=== PATIENT | male | born 1990 | race Caucasian/White ===

== ENCOUNTER 2016-10-13 19:49 | Inpatient (IN) | payer BC, OTHER ==
[~2016-10-13] VITALS: Ht 180.3 cm; Wt 66.2 kg
[2016-10-13 20:20] VITALS: BP 102/61
--- NOTE | 2016-10-13 20:20 | NUR ---
INTAKE ASSESSMENT VS BP- 102/61 T-97.8 P-55 R-17 PA-0/10 SpO2 AT 99% IN RA . SPEECH CLEAR, ABLE TO ANSWER QUESTION PROPERLY. ALERT AND ORIENTED X 4. AMBULATORY AND GAIT IS STEADY. DENIES ANY PAIN . NO SEIZURE HISTORY. NO KNOWN ALLERGIES TO FOOD OR MEDICATIONS. PATIENT REPORTS USING XANAX, ALCOHOL AND MARIJUANA. DENIES ANY PAIN . WILL CONTINUE ADMISSION PROCESS ON 3RD FLOOR
--- NOTE | 2016-10-13 20:36 | NUR ---
ADMISSION NOTE PATIENT IS A 26 YEAR OLD MALE WHO PRESENTS TO [facility] FOR SUPERVISED WITHDRAWAL FROM ETOH/BENZO DEPENDENCE. HEIGHT IS 511 AND WEIGHT IS 146 LBS. BODY CHECK DONE, SKIN INTACT. NO SKIN BREAKDOWN. LUNGS CLEAR AND ABDOMEN SOFT AND NON-DISTENDED. BOWEL SOUNDS ACTIVE ON ALL 4 QUADRANT. LAST BOWEL MOVEMENT TODAY. PATIENT REQUESTED TO BE FULL CODE AND ON REGULAR DIET. PATIENT HAS NO PCP. PATIENT REPORT PMH OF ADHD, ANXIETY, PANIC ATTACK, BIPOLAR TYPE II, DEPRESSION AND SUICIDE ATTEMPT ON NOV 2015. DENIES SI/HI . 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 SUBSTANCE HISTORY: 1.ALCOHOL-STARTED DRINKING AT AGE 16. PATIENT DRINKS 1 PINT OF VODKA DAILY FOR A WEEK. LAS DRINK WAS 1 SHOT OF VODKA ON 10/13/16 2.XANAX (PRESCRIBED NEEDED)-STARTED USING AT AGE 21. HE TAKES BAR 1 BAR NEEDED SINCE AGE 21 . LAST USE WAS 1 BAR ON 10/12/16 3.MARIJUANA -STARTED USING AT AGE 17. HE SMOKES 1 GRAM DAILY 6 YEARS . LAST USE WAS TH GRAM ON 10/13/16 TREATMENT HISTORY: [facility]-FEB 2016-30 DAYS [facility] MAR 2016-30 DAYS PATIENT BROUGHT HOME MEDS.-RECONCILED. PATIENT REPORTS ANXIETY BUT HES NOT WITHDRAWING YET. UA WAS PROVIDED. HIS LONGEST PERIOD OF SOBRIETY WAS 90 DAYS ON [facility] AND [facility] FROM FEB-APRIL 2016. PATIENT SMOKES PACK A DAY. PATIENT WAS ORIENTED TO SURROUNDING AND HOW TO USE CALL LIGHT. PATIENT WAS PLACED ON FALL/SEIZURE PRECAUTION. SAFETY MEASURES IN PLACE. CALL LIGHT IN REACH. WILL CONTINUE TO MONITOR. Addendum: 10/14/16 at 1509 by JULISSA LAINEZ RN PATIENT REPORTS USING 10 MG HYDROCODONE ON 10/12/16. HE STATES IT WAS A ONE TIME EXPERIENCE.
[2016-10-13] MEDS ORDERED: METH36TA13 PO (22:21)
[2016-10-13] MEDS ORDERED: FLUO20TA28 PO (22:21)
[2016-10-13] MEDS ORDERED: OMEG1TAB4 PO (22:21)
[2016-10-13] MEDS ORDERED: OLAN10TA23 PO (22:21)
[2016-10-13] MEDS ORDERED: BUSP5TAB3 PO (22:21)
[2016-10-13] MEDS ORDERED: CLON0.1T PO (22:21)
[2016-10-13] MEDS ORDERED: MAGNESIUM HYDROXIDE 30 ML LIQUID UDC PO PRN (22:45)
[2016-10-13] MEDS ORDERED: THIAMINE HCL 200 MG/2 ML VIAL IM ONE (22:45)
[2016-10-13] MEDS ORDERED: LOPERAMIDE HCL 2 MG CAPSULE PO PRN ×2 (22:45)
[2016-10-13] MEDS ORDERED: MIRALAX 17 GM POWD.PACK PO PRN (22:45)
[2016-10-13] MEDS ORDERED: LORAZEPAM 1 MG TABLET PO PRN ×2 (22:45)
[2016-10-13] MEDS ORDERED: MAG HYDROX/AL HYDROX/SIMETH 30 ML LIQUID UDC PO PRN (22:45)
[2016-10-13] MEDS ORDERED: ONDANSETRON 4 MG/2 ML VIAL IM PRN (22:45)
[2016-10-13] MEDS ORDERED: ONDANSETRON ODT 4 MG TAB.RAPDIS SL PRN (22:45)
[2016-10-13] MEDS ORDERED: ACETAMINOPHEN 325 MG TABLET PO PRN (22:45)
[2016-10-13] MEDS ORDERED: IBUPROFEN 400 MG TABLET PO PRN (22:45)
[2016-10-13] MEDS ORDERED: LORAZEPAM 2 MG/1 ML VIAL IM PRN (22:45)
--- NOTE | 2016-10-13 22:45 | NUR ---
THIAMINE INJECTION REFUSED PATIENT REFUSED THIAMINE INJECTION. EXPLAINED RISKS/BENEFITS BUT STILL REFUSED . WILL CONTINUE TO MONITOR.
[2016-10-14 00:36] LABS: *AMPHETAMINE, URINE NEGATIVE (NEGATIVE); *BARBITURATE, URINE NEGATIVE (NEGATIVE); *CANNABINOID, URINE POSITIVE (NEGATIVE); *COCCAINE, URINE NEGATIVE (NEGATIVE); *OPIATE, URINE POSITIVE (NEGATIVE); *PHENCYCLIDINE SCREEN,URINE NEGATIVE (NEGATIVE)
[2016-10-14 00:41] LABS: BASOPHILS # (AUTO) 0.1 K/uL (0.0-8.0); BASOPHILS % (AUTO) 0.9 % (0.0-2.0); EOSINOPHILS # (AUTO) 0.3 K/uL (0.0-0.7); EOSINOPHILS % (AUTO) 4.5 % (0.0-7.0); HEMATOCRIT 44.3 % (40-50); HEMOGLOBIN 15.1 G/DL (14.0-18.0); LYMPHOCYTES # (AUTO) 3.2 K/UL (0.8-4.8); MEAN CORPUSCULAR HEMOGLOBIN 30.6 UUG (27.0-31.0); MEAN CORPUSCULAR HGB CONC 34 g/dL (32.0-37.0); MEAN CORPUSCULAR VOLUME 89.9 FL (82.0-92.0); MONOCYTES # (AUTO) 0.3 K/UL (0.1-1.30); MONOCYTES % (AUTO) 5.2 % (0.0-11.0); NEUTROPHILS # (AUTO) 2.7 K/UL (1.8-8.9); NEUTROPHILS % (AUTO) 41.4 % (38.5-71.5); PLATELET COUNT (AUTO) 239 K/UL (150-450); RED BLOOD CELL COUNT(AUTO) 4.92 MIL/UL (4.7-6.1); WHITE BLOOD COUNT (AUTO) 6.6 K/UL (4.0-11.2)
[2016-10-14 00:59] LABS: ALANINE AMINOTRANSFERASE 26 U/L (16-63); ALKALINE PHOSPHATASE 51 U/L (50-136); AMYLASE 35 U/L (25-115); ASPARTATE AMINOTRANSFERASE 18 U/L (15-37); BILIRUBIN,TOTAL 1.6 mg/dL (0.2-1.0); CARBON DIOXIDE 30 mmol/L (21-32); CHLORIDE 102 mmol/L (98-107); CREATININE 0.9 mg/dL (0.6-1.3); GLUCOSE 80 mg/dL (74-106); LIPASE 50 U/L (73-393); MAGNESIUM 1.8 mg/dL (1.8-2.4); POTASSIUM 3.8 mmol/L (3.5-5.1); TOTAL PROTEIN, SERUM 6.8 g/dL (6.4-8.2); UREA NITROGEN, BLOOD 16 mg/dL (7-18)
[2016-10-14 01:00] LABS: ETHANOL < 3 MG/DL (0-0)
[2016-10-14 04:00] VITALS: BP 113/63
--- NOTE | 2016-10-14 07:20 | NUR ---
START OF SHIFT NOTE PATIENT HAD UNEVENTFUL EVENT LAST NIGHT. PATIENT SLEPT 7 HOURS. FLUID INTAKE OF 355 ML. VOIDED X 1. NO BM. PATIENT DID NOT REQUIRE ANY PRN MEDICATION. LAST CIWA 1. PATIENT REFUSED THIAMINE INJECTION. ON FALL/SEIZURE PRECAUTION. SAFETY MEASURES IN PLACE. CALL LIGHT IN REACH. WILL CONTINUE TO MONITOR
[2016-10-14 08:00] VITALS: BP 106/64
--- NOTE | 2016-10-14 08:10 | NUR ---
START OF SHIFT Received patient AOx4. Patient reports he isnt experiencing w/d symptoms yet, but he is feeling anxious. No PRNS given per night nurse. Patient slept 7 hours. CIWA 4 at 0800 this AM. Encouraged patient to increase fluid intake. Encouraged pt to notify RN if S/S of W/D worsen. All safety measures in place. Will monitor.
[2016-10-14] MEDS: MULTIVITAMINS,THERAPEUTIC TABLET PO SCH (08:30)
[2016-10-14] MEDS: FOLIC ACID 1 MG TABLET PO SCH (08:31)
[2016-10-14] MEDS: HYDROXYZINE PAMOATE 25 MG CAPSULE PO PRN (08:31)
[2016-10-14] MEDS: THIAMINE HCL 100 MG TABLET PO SCH (08:31)
--- NOTE | 2016-10-14 08:32 | NUR ---
PRN MEDICATION VISTARIL GIVEN FOR PATIENT C/O GENERALIZED ANXIETY. WILL REASSESS
[2016-10-14] MEDS ORDERED: TUBERCULIN,PURIF.PROT.DERIV. 5 TU/0.1 ML TEST ID ONE (09:00)
--- NOTE | 2016-10-14 09:20 | NUR ---
PRN REASSESSMENT patient reports improvement in anxiety. will monitor
[2016-10-14 12:00] VITALS: BP 112/70
[2016-10-14] MEDS ORDERED: LORAZEPAM 1 MG TABLET PO PRN ×2 (15:00)
[2016-10-14] MEDS: GABAPENTIN 300 MG CAPSULE PO SCH ×2 (15:12→21:03)
[2016-10-14] MEDS ORDERED: OLANZAPINE PO SCH (15:45)
[2016-10-14 16:00] VITALS: BP 120/64
[2016-10-14] MEDS: OLANZAPINE 5 MG TABLET PO SCH (16:25)
[2016-10-14] MEDS: FLUOXETINE HCL 20 MG CAPSULE PO SCH (16:25)
[2016-10-14] MEDS: busPIRone 5 MG TABLET PO SCH (16:27)
[2016-10-14] MEDS ORDERED: LORAZEPAM 1 MG TABLET PO SCH ×2 (17:45→22:00)
--- NOTE | 2016-10-14 18:35 | NUR ---
END OF SHIFT NOTE Patient is to start 5 day Ativan taper tomorrow. Patient given Ativan ordered at 1745 this shift. Patient report anxiety and mild tremors. He reports this is "normal" for him. PRN Vistaril given for anxiety with effectiveness.. Patient attended group and activities and socialized with peers. Vital signs stable. Last CIWA 7. All needs met. All safety measures in place. Will endorse to night nurse.
[2016-10-14 20:00] VITALS: BP 106/68
--- NOTE | 2016-10-14 20:00 | NUR ---
Start of Shift Patient is a 26-year old, male, admitted for Alcohol and Benzo Dependence. Pt with hx of ADHD, Anxiety, Panic Attack, Bipolar Type II, Depression and Suicide Attempt on 11/2015. Pt denies SI/HI at this time. Pt with NKA, is Full Code and on Regular Diet. Pt is scheduled to start on a 5-day Ativan taper on 10/15/2016. Pt is AAOx4, no SOB noted and with mild anxiety observed. Pt verbalized "feeling a little drowsy". Vital signs are stable. Fall, universal, seizure and safety prec in place. Call light within reach. Latest CIWA=5. Will continue to monitor.
[2016-10-15] VITALS: BP 110/62
[2016-10-15 04:00] VITALS: BP 115/63
--- NOTE | 2016-10-15 07:06 | NUR ---
End of Shift Patient is a 26-year old, male, admitted for Alcohol and Benzo Dependence. Pt with hx of ADHD, Anxiety, Panic Attack, Bipolar Type II, Depression and Suicide Attempt on 11/2015. Pt denies SI/HI at this time. Pt with NKA, is Full Code and on Regular Diet. Pt is scheduled to start on a 5-day Ativan taper on 10/15/2016. Pt is AAOx4, no SOB noted and with mild anxiety observed. Vital signs are stable. Fall, universal, seizure and safety prec in place. Call light within reach. Latest CIWA=3, slept for 9 hours. Endorsed to AM shift nurse for continuity of care.
[2016-10-15 08:00] VITALS: BP 116/72
[2016-10-15 08:07] LABS: HEPATITIS B SURFACE AG Negative (Negative)
--- NOTE | 2016-10-15 08:20 | NUR ---
START OF SHIFT: RECEIVED PT A/O X 4. HE STATES HE SLEPT WELL. HE DENIES S/I AND H/I. HE PRESENTS WITH BLUNTED AFFECT AND DEPRESSED MOOD. HE STATES HE FEELS SOME ANXIETY AND RESTLESSNESS. HE REPORTS THE DETOX MEDS ARE EFFECTIVE. CIWA 5 ATIVAN TAPER IN PROGRESS. ENCOURAGED INCREASED FLUIDS AND GROUP ATTENDANCE TODAY. WILL CONTINUE TO MONITOR AND MANAGE S/S OF W/D.
[2016-10-15] MEDS: FOLIC ACID 1 MG TABLET PO SCH (08:41)
[2016-10-15] MEDS: GABAPENTIN 300 MG CAPSULE PO SCH ×3 (08:41→21:49)
[2016-10-15] MEDS: MULTIVITAMINS,THERAPEUTIC TABLET PO SCH (08:41)
[2016-10-15] MEDS: busPIRone 5 MG TABLET PO SCH ×3 (08:41→17:20)
[2016-10-15] MEDS: THIAMINE HCL 100 MG TABLET PO SCH (08:41)
[2016-10-15] MEDS: FLUOXETINE HCL 20 MG CAPSULE PO SCH (08:42)
[2016-10-15] MEDS: LORAZEPAM 1 MG TABLET PO SCH ×3 (08:42→21:48)
[2016-10-15] MEDS: OLANZAPINE 5 MG TABLET PO SCH (08:42)
[2016-10-15] MEDS ORDERED: 5 DAY TAPER OF LORAZEPAM -SERENITY PROTOCOL PO PRN (09:00)
[2016-10-15] MEDS ORDERED: LORAZEPAM 1 MG TABLET PO PRN ×2 (11:30)
[2016-10-15 12:00] VITALS: BP 133/60
[2016-10-15 16:00] VITALS: BP 144/78
--- NOTE | 2016-10-15 19:10 | NUR ---
END OF SHIFT: PT CONTINUES ON ATIVAN TAPER. HE PRESENTS ANXIOUS AND IS TREMULOUS. LAST CIWA 8. ENCOURAGED INCREASED FLUIDS AND PT COMPLIANT. HE INTERACTED WITH PEERS AND ATTENDED GROUPS. HE DENIES S/I AND H/I. NO PRNS GIVEN. BUSPAR SCHEDULED FOR ANXIETY AND MILDLY EFFECTIVE. WILL PASS SHIFT REPORT TO ONCOMING NIGHT NURSE.
--- NOTE | 2016-10-15 19:15 | NUR ---
START OF SHIFT NOTE : Patient is a 26-year old, male, admitted for Alcohol and Benzo Dependence. Pt with NKA, is Full Code and on Regular Diet. Pt with hx of ADHD, Anxiety, Panic Attack, Bipolar Type II, Depression and Suicide Attempt on 11/2015. Pt denies SI/HI at this time. Pt is scheduled to start on a 5-day Ativan taper on 10/15/2016. Pt is AAOx4, no SOB noted and with mild anxiety observed. Pt verbalized "feeling a little drowsy". Vital signs are stable. Fall, universal, seizure and safety prec. in place. Latest CIWA=8 at 16:00. Safety measures in place : bed on lowest position with side rails x2 up for safety, call light within reach. Will continue to monitor closely and offer help.
[2016-10-15 20:00] VITALS: BP 133/80
--- NOTE | 2016-10-15 21:00 | NUR ---
PRN BENADRYL Patient c/o insomnia and asked aid. PRN Benadryl administrated for insomnia with full glass of water as ordered. Patient tolerated well. All needs met. Safety measures on place. Call light within reach, bed in lowest position and locked, padded rails up bilaterally rails up bilaterally. Will continue to monitor closely.
[2016-10-15] MEDS: diphenhydrAMINE 50 MG CAPSULE PO PRN (21:48)
--- NOTE | 2016-10-15 22:00 | NUR ---
Re-assessment HAIDER Pt. is sleeping, RR=16, unlabored and even Safety measures in place : bed on lowest position with side rails x2 up for safety, call light within reach. Will continue to monitor closely and offer help.
--- NOTE | 2016-10-16 06:35 | NUR ---
END OF SHIFT NOTE : Patient is a 26-year old, male, admitted for Alcohol and Benzo Dependence. Pt with NKA, is Full Code and on Regular Diet. Pt with hx of ADHD, Anxiety, Panic Attack, Bipolar Type II, Depression and Suicide Attempt on 11/2015. Pt denies SI/HI at this time. Pt is scheduled to start on a 5-day Ativan taper on 10/15/2016. Pt is AAOx4, no SOB noted and with mild anxiety observed. Pt remains compliant with the treatment plan. BENADRYL given during my shift. V/S remain WNL. RR=16, even and unlabored, lungs clear upon auscultation, abdomen soft and non- distended. Pt denies nausea, vomiting and diarrhea. LAST CIWA= 4 at 0400 , INTAKE=1,291 ml, voided x2 , slept 7 hours. Safety measures in place : bed on lowest position with side rails x2 up for safety, call light within reach. Will continue to monitor closely and offer help.
--- NOTE | 2016-10-16 07:15 | NUR ---
Start of shift note Pt was admitted for ETOH and benzo dependence. Pt has a PMHx of anxiety, depression, ADHD, panic attack, bipolar type II and a suicide attempt in Nov 2015. Pt is a full code, on a regular diet and denies any allergies. Pt is on a 5 day ativan taper and tolerating well. Pt is currently resting in bed, pt has no complaints at this time, all needs addressed. Call light within reach, side rails up x 2, bed locked in a low position. Will continue to monitor pt.
[2016-10-16 08:00] VITALS: BP 127/82
[2016-10-16] MEDS: busPIRone 5 MG TABLET PO SCH ×3 (09:29→16:39)
[2016-10-16] MEDS: GABAPENTIN 300 MG CAPSULE PO SCH ×3 (09:29→20:16)
[2016-10-16] MEDS: FOLIC ACID 1 MG TABLET PO SCH (09:29)
[2016-10-16] MEDS: MULTIVITAMINS,THERAPEUTIC TABLET PO SCH (09:29)
[2016-10-16] MEDS: FLUOXETINE HCL 20 MG CAPSULE PO SCH (09:29)
[2016-10-16] MEDS: OLANZAPINE 5 MG TABLET PO SCH (09:29)
[2016-10-16] MEDS: LORAZEPAM 1 MG TABLET PO SCH ×4 (09:29→20:16)
[2016-10-16] MEDS: THIAMINE HCL 100 MG TABLET PO SCH (09:29)
[2016-10-16 12:00] VITALS: BP 128/87
[2016-10-16 16:00] VITALS: BP 114/75
--- NOTE | 2016-10-16 18:55 | NUR ---
End of shift note Pt was admitted for ETOH and benzo dependence. Pt is a full code, on a regular diet and denies any allergies. Pt has a PMHx of anxiety, depression, ADHD, panic attack, bipolar type II and a suicide attempt in Nov 2015.. Pt is on a 5 day ativan taper and tolerating well. Pt participated in group and other activities during the shift. Pt has no complaints at this time. All needs addressed. Pt ate 100% of meals, had 4 voids, 2 BMs during the shift. Will endorse the SBAR to oncoming shift.
[2016-10-16 20:00] VITALS: BP 128/81
--- NOTE | 2016-10-16 20:00 | NUR ---
1999 Patient received awake, alert and ambulating to his room, # [id number], from [employer] group in recreation room. Gait is brisk, steady. Patient responds to nurse's greeting and introduction with a smile and, " Hi!" Patient is oriented to person, place, day, date, time and his personal situation. Patient's color is tannish-pink and his skin is warm, dry and intact. Overall appearance however is slightly disheveled. Patient denies any pain or other discomfort at this time and he voices no requests. Patient states that he has been attending [employer] regularly, eating his regular diet trays and taking various fluids ad raheem, with no gastric issues so far. Vital signs are: 98.3-78-16 128/81, O2 Sat 98%, CIWA 2 . Patient was admitted on 10/13/16 for: Alcohol, Xanax (Rx), and Marijuana withdrawal and he is currently on a 5-Day Ativan medication taper, which he has apparently been tolerating so far. Patient is friendly, cooperative and verbally appropriate when interacting with nurse. Patient states that he is heading downstairs to the hospital patio for a smoke break. Bed is locked and in lowest position, bed rails are up X 1 and call light within patient's easy reach.
[2016-10-16] MEDS: diphenhydrAMINE 50 MG CAPSULE PO PRN (21:09)
[2016-10-16] MEDS: HYDROXYZINE PAMOATE 25 MG CAPSULE PO PRN (21:09)
--- NOTE | 2016-10-16 21:09 | NUR ---
PRN MEDICATIONS: Prn Benadryl 50 mg p.o. given per request for sleep medication and Prn Vistaril 25 mg p.o. given per c/o anxiety.
--- NOTE | 2016-10-16 22:09 | NUR ---
REASSESSMENT PRN MEDICATIONS: Patient is resting comfortably with eyes closed and respirations quiet, even, unlabored at 12.
[2016-10-16] MEDS: CLONIDINE HCL 0.1 MG TABLET PO PRN (22:30)
--- NOTE | 2016-10-16 22:30 | NUR ---
PRN MEDICATION: " I can't sleep and I have lots of anxiety, feel a little jumpy too" Prn Catapres 0.1 mg p.o. given.
--- NOTE | 2016-10-16 23:30 | NUR ---
REASSESSMENT PRN MEDICATION: Patient is sleeping soundly with eyes closed and respirations deep, even, unlabored at 12.
--- NOTE | 2016-10-17 | NUR ---
Patient refused to be awakened for V/S, CIWA to be done at this time.
--- NOTE | 2016-10-17 04:00 | NUR ---
Patient refused to be awakened for V/S to be done at this time.
--- NOTE | 2016-10-17 06:30 | NUR ---
0630 Patient slept a total of 7 hours and he had 3 voids and 1 stools. Total intake was 1,700 ml p.o. Prn medications given noted separately per floor protocol. V/SS afebrile, last CIWA 2. Patient is presently sleeping comfortably in stable condition with eyes closed and respirations quiet, even, unlabored at 12.
--- NOTE | 2016-10-17 08:15 | NUR ---
Start of Shift Meter Reader Inspector received report on 26 year old male admitted on 10/13/16 for ETOH and Xanax detoxification. Pt has NKA, is a full code and eats a regular diet. Pt currently on a 5 day Ativan taper, tolerating well. Meter Reader Inspector encounters pt in room resting with eyes closed. Respiration even and unlabored with rise and fall of chest noted. Bed in low position with wheels locked, side rails up x2 and call light within reach. Will continue to monitor, support and encourage according to plan of care.
[2016-10-17 08:45] VITALS: BP 130/80
[2016-10-17] MEDS: busPIRone 5 MG TABLET PO SCH ×3 (09:26→18:33)
[2016-10-17] MEDS: LORAZEPAM 1 MG TABLET PO SCH ×3 (09:26→20:48)
[2016-10-17] MEDS: FOLIC ACID 1 MG TABLET PO SCH (09:27)
[2016-10-17] MEDS: FLUOXETINE HCL 20 MG CAPSULE PO SCH (09:27)
[2016-10-17] MEDS: THIAMINE HCL 100 MG TABLET PO SCH (09:27)
[2016-10-17] MEDS: GABAPENTIN 300 MG CAPSULE PO SCH ×3 (09:27→20:49)
[2016-10-17] MEDS: OLANZAPINE 5 MG TABLET PO SCH (09:27)
[2016-10-17] MEDS: MULTIVITAMINS,THERAPEUTIC TABLET PO SCH (09:27)
--- NOTE | 2016-10-17 11:41 | NUR ---
GLORIAN Maribel Pt complains of headache, " feels like a tension headache, think I slept wrong." Administered medication per order and pt tolerated well.
--- NOTE | 2016-10-17 12:45 | NUR ---
PRN Re-assessment Pt endorses having relief from pain, will continue to monitor, support and encourage according to plan of care.
[2016-10-17 12:55] VITALS: BP 149/80
[2016-10-17 16:35] VITALS: BP 133/83
--- NOTE | 2016-10-17 19:02 | NUR ---
End of Shift 325 Adjunct Instructor provided report on 26 year old male admitted on 10/13/16 for ETOH and Xanax detoxification, with no further comments, questions or concerns voiced. Pt has NKA, is a full code and eats a regular diet. Pt currently on a 5 day Ativan taper, tolerating well. Pt is calm, cooperative and social with peers. Makes his needs known, clear in thought and speech. A/O x4. Bed in low position with wheels locked, side rails up x2 and call light within reach. Will continue to monitor, support and encourage according to plan of care,
[2016-10-17 20:00] VITALS: BP 121/85
--- NOTE | 2016-10-17 20:00 | NUR ---
1999 Patient received awake, alert and just returning to his room # 325 from [employer] group in recreation room. Upon seeing nurse, patient states, " Hi!, Could you please hurry with the vital signs, so I can go downstairs for a smoke!?" Patient then laughs, Patient is oriented to person, place, day, date, time and his personal situation. Patient's color is pink and his skin is warm, dry and intact. Patient states that he continues to attend [employer] regularly, eat his meal trays and drink various fluids ad raheem with no issues noted. Vital signs are: 98.3-99-18 121/85, O2 Sat 95%, CIWA 3 . Patient denies any pain or other discomforts at this time and he voices no c/o anything. Patient was admitted on 10/13/16 for: Alcohol, Xanax, Marijuana withdrawal and he is currently on a 5 -Day Ativan medication taper, which he has been apparently tolerating well thus far. Patient is friendly, cooperative and verbally appropriate when interacting with nurse. Bed is locked and in lowest position, bed rails are up X 1 and call light within patient's easy reach.
[2016-10-17] MEDS ORDERED: QUETIAPINE FUMARATE 100 MG TABLET PO SCH (21:00)
[2016-10-17] MEDS: CLONIDINE HCL 0.1 MG TABLET PO PRN (22:11)
--- NOTE | 2016-10-17 22:11 | NUR ---
PRN MEDICATION: Prn Catapres 0.1 mg p.o. given per c/o increasing anxiety and agitation.
[2016-10-17] MEDS: HYDROXYZINE PAMOATE 25 MG CAPSULE PO PRN (22:12)
--- NOTE | 2016-10-17 22:12 | NUR ---
PRN MEDICATION: Prn Vistaril 25 mg p.o. given per c/o increasing anxiety.
--- NOTE | 2016-10-17 23:12 | NUR ---
REASSESSMENT PRN MEDICATIONS: Patient noted resting comfortably with eyes closed and respirations quiet, even, unlabored at 12.
--- NOTE | 2016-10-18 | NUR ---
Patient requested earlier in shift not to be awakened at 0000 for V/S to be done.
--- NOTE | 2016-10-18 04:00 | NUR ---
Patient requested earlier in shift not to be awakened for V/S to be done at this time.
--- NOTE | 2016-10-18 06:30 | NUR ---
0630 Patient slept a total of 7 hours and he had 1 void and no stools. Total intake was 473 ml p.o. Prn medications given noted separately per floor protocol. V/SS afebrile, last CIWA was 5 at 2211. Patient is presently sleeping comfortably in stable condition with eyes closed and respirations even, unlabored at 12.
--- NOTE | 2016-10-18 07:30 | NUR ---
START OF SHIFT Pt is a 26 yr old male, A&Ox3. Pt was admitted on 10/13/16 for ETOH/Benzo Dependence and is on 5 day Ativan taper as ordered. Pt received Vistaril PRN and Clonidine for anxiety during the night. Medication was effective. Pt slept for 7 hrs. Last CIWA score was 5. Pt remains in bed resting with respirations even and unlabored. No acute distress noted. Skin is intact, warm and dry to touch. No tremors seen or felt. Pt denies any n/v. Safety precautions observed. Call light is within reach. Will continue to monitor.
[2016-10-18 08:00] VITALS: BP 152/86
[2016-10-18] MEDS: busPIRone 5 MG TABLET PO SCH ×3 (08:35→17:03)
[2016-10-18] MEDS: FLUOXETINE HCL 20 MG CAPSULE PO SCH (08:35)
[2016-10-18] MEDS: OLANZAPINE 5 MG TABLET PO SCH (08:35)
[2016-10-18] MEDS: FOLIC ACID 1 MG TABLET PO SCH (08:35)
[2016-10-18] MEDS: THIAMINE HCL 100 MG TABLET PO SCH (08:35)
[2016-10-18] MEDS: GABAPENTIN 300 MG CAPSULE PO SCH ×3 (08:35→21:30)
[2016-10-18] MEDS: LORAZEPAM 1 MG TABLET PO SCH ×2 (08:35→21:30)
[2016-10-18] MEDS: MULTIVITAMINS,THERAPEUTIC TABLET PO SCH (08:35)
[2016-10-18 12:00] VITALS: BP 137/84
[2016-10-18 16:30] VITALS: BP 142/78
--- NOTE | 2016-10-18 18:43 | NUR ---
END OF SHIFT Pt is a 26 yr old male, A&Ox3. Pt was admitted on 10/13/16 for ETOH/Benzo Dependence and is on 5 day Ativan taper as ordered. Pt has been cooperative with medication regimen. Pt refused to attend any group sessions. No PRNs were given. Last CIWA score was 5 at 1600. Pt is observed with increase drowsiness during the day. Skin is intact, warm and moist to touch. Fine tremors seen are observed. Pt denies any n/v. Safety precautions observed. Call light is within reach.
[2016-10-18 20:00] VITALS: BP 129/88
--- NOTE | 2016-10-18 20:05 | NUR ---
START OF SHIFT Received report from day shift nurse. Pt attended a group meeting and returned to his room after. He is a 26 yo male admitted to [facility] on 10/13 for ETOH and BZD dependence. He is A&O x4 and ambulatory. NKA, full code status, and on a regular diet. On admission pt admitted to drinking vodka 1 pint per day, xanax intermittently, and marijuana. Pt started a 5 day Ativan taper on 10/15. He has tremors and moist skin. Pt is cooperative with treatment. Taper due tonight. Fall and seizure precautions in place. Bed is down with call light in reach.
[2016-10-18] MEDS ORDERED: TRAZODONE 100 MG TABLET PO SCH (21:00)
[2016-10-19] VITALS: BP 133/71
--- NOTE | 2016-10-19 | NUR ---
0000 CIWA deferred CIWA ordered Q4HWA. Pt is lying in bed resting with eyes closed. Respirations even and unlabored. Vital signs obtained. Safety measures in place.
--- NOTE | 2016-10-19 04:00 | NUR ---
0400 Vitals refused/CIWA deferred Pt refused to be woken for 0400 vitals. He is lying in bed resting with eyes closed. Respirations even and unlabored. CIWA ordered Q4HWA. Safety measures in place.
--- NOTE | 2016-10-19 07:07 | NUR ---
END OF SHIFT Report provided to day shift nurse. Pt is lying in bed resting. He is a 26 yo male admitted to [facility] on 10/13 for ETOH and BZD dependence. He is A&O x4 and ambulatory. NKA, full code status, and on a regular diet He has a PMH of ADHD, Bipolar, panic attacks, h/o suicide attempt. Pt denied SI. On admission pt admitted to drinking vodka 1 pint per day, xanax intermittently, and marijuana. Pt started a 5 day Ativan taper on 10/15. Last CIWA was 5 prior to night medications. No PRNs administered. He drank 1855mL and slept for 8 hours. Fall precautions in place. Bed is down with call light in reach.
--- NOTE | 2016-10-19 07:35 | NUR ---
START OF SHIFT Pt is a 26 yr old male, A&Ox3. Pt was admitted on 10/13/16 for ETOH/Benzo Dependence and is on 5 day Ativan taper as ordered. No PRN's were given during the night. Pt slept for 8 hrs. Last CIWA score was 5. Pt remains in bed resting with respirations even and unlabored. No acute distress noted. Skin is intact, warm and dry to touch. Fine tremors are observed. Pt states of mild anxiety but is able to cope with anxiety level. Encouraged pt to attend group sessions during the day. Pt agreed to attend. Pt denies any n/v. Safety precautions observed. Call light is within reach. Will continue to monitor.
[2016-10-19 08:00] VITALS: BP 138/87
[2016-10-19] MEDS: FLUOXETINE HCL 20 MG CAPSULE PO SCH (09:49)
[2016-10-19] MEDS: THIAMINE HCL 100 MG TABLET PO SCH (09:49)
[2016-10-19] MEDS: FOLIC ACID 1 MG TABLET PO SCH (09:49)
[2016-10-19] MEDS: GABAPENTIN 300 MG CAPSULE PO SCH ×3 (09:49→20:43)
[2016-10-19] MEDS: busPIRone 5 MG TABLET PO SCH ×3 (09:49→17:24)
[2016-10-19] MEDS: OLANZAPINE 5 MG TABLET PO SCH (09:50)
[2016-10-19] MEDS: MULTIVITAMINS,THERAPEUTIC TABLET PO SCH (09:50)
[2016-10-19 12:00] VITALS: BP 131/84
[2016-10-19] MEDS: HYDROXYZINE PAMOATE 25 MG CAPSULE PO PRN (12:37)
--- NOTE | 2016-10-19 12:37 | NUR ---
PRN GIVEN Pt c/o increase anxiety. Vistaril 25mg PO PRN was given as ordered for anxiety. Medication cristina well. Will continue to monitor.
--- NOTE | 2016-10-19 13:37 | NUR ---
PRN RE-ASSESSMENT Vistaril PRN was effective. Pt denies any anxiety at this time. Will continue to monitor.
[2016-10-19 16:00] VITALS: BP 127/86
[2016-10-19 17:29] LABS: *AMPHETAMINE, URINE NEGATIVE (NEGATIVE); *BARBITURATE, URINE NEGATIVE (NEGATIVE); *CANNABINOID, URINE POSITIVE (NEGATIVE); *COCCAINE, URINE NEGATIVE (NEGATIVE); *OPIATE, URINE NEGATIVE (NEGATIVE); *PHENCYCLIDINE SCREEN,URINE NEGATIVE (NEGATIVE)
--- NOTE | 2016-10-19 19:10 | NUR ---
END OF SHIFT Pt is a 26 yr old male, A&Ox3. Pt was admitted on 10/13/16 for ETOH/Benzo Dependence and has completed 5 day Ativan taper as ordered. Pt has been cooperative with medication regimen. Pt received Vistaril PRN for anxiety. Medication was effective. Last CIWA score was 4 at 1600. Encouraged increase fluid intake. Pt is to be discharged tomorrow. Urine drug screen is complete. Pt c/o of mild anxiety at this time but is able to cope with anxiety level. Skin is intact, warm and moist to touch. Fine tremors are observed. Pt denies any n/v. Safety precautions observed. Call light is within reach.
--- NOTE | 2016-10-19 19:55 | NUR ---
START OF SHIFT Received report from day shift nurse. Pt attended a group meeting and returned to his room after. He is a 26 yo male admitted to [facility] on 10/13 for ETOH and BZD dependence. He is A&O x4 and ambulatory. NKA, full code status, and on a regular diet. On admission pt admitted to drinking vodka 1 pint per day, xanax intermittently, and marijuana. 5 Day Ativan taper complete and he is scheduled for discharge tomorrow. He reports feeling some anxiety. Minimal other s/s of withdrawal noted. Fall and seizure precautions in place. Bed is down with call light in reach.
[2016-10-19 20:00] VITALS: BP 124/81
[2016-10-19] MEDS ORDERED: TRAZODONE 100 MG TABLET PO SCH (21:00)
--- NOTE | 2016-10-20 | NUR ---
0000 Vitals refused/CIWA deferred Pt refused to be woken for 0000 vitals. He is lying in bed resting with eyes closed. Respirations even and unlabored. CIWA ordered Q4HWA. Safety measures in place.
[2016-10-20] MEDS ORDERED: HYDR-3895 PO (04:47)
[2016-10-20] MEDS ORDERED: GABA-534 PO (04:47)
[2016-10-20] MEDS ORDERED: CLON0.1T14 PO (04:47)
[2016-10-20] MEDS ORDERED: TRAZ-147 PO (04:47)
--- NOTE | 2016-10-20 07:18 | NUR ---
END OF SHIFT Report provided to day shift nurse. Pt is lying in bed resting. He is a 26 yo male admitted to [facility] on 10/13 for ETOH and BZD dependence. He is A&O x4 and ambulatory. NKA, full code status, and on a regular diet. On admission pt admitted to drinking vodka 1 pint per day, xanax intermittently, and marijuana. 5 Day Ativan taper complete and he is scheduled for discharge today. Minimal s/s of withdrawal noted. No PRN medications administered. Last CIWA 2. He drank 1096mL and slept for 8 hours. Fall and seizure precautions in place. Bed is down with call light in reach.
--- NOTE | 2016-10-20 07:30 | NUR ---
START OF SHIFT Pt is a 26 yr old male, A&Ox3. Pt was admitted on 10/13/16 for ETOH/Benzo Dependence and has completed 5 day Ativan taper as ordered. No PRN's were given during the night. Pt slept for 8 hrs. Last CIWA score was 2. Pt is to be discharged today. Pt remains in bed resting with respirations even and unlabored. No acute distress noted. Skin is intact, warm and dry to touch. No tremors seen or felt. Pt denies any n/v. Safety precautions observed. Call light is within reach. Will continue to monitor.
[2016-10-20 08:00] VITALS: BP 123/86
[2016-10-20] MEDS: GABAPENTIN 300 MG CAPSULE PO SCH (08:49)
[2016-10-20] MEDS: MULTIVITAMINS,THERAPEUTIC TABLET PO SCH (08:49)
[2016-10-20] MEDS: THIAMINE HCL 100 MG TABLET PO SCH (08:49)
[2016-10-20] MEDS: OLANZAPINE 5 MG TABLET PO SCH (08:49)
[2016-10-20] MEDS: FOLIC ACID 1 MG TABLET PO SCH (08:49)
[2016-10-20] MEDS: busPIRone 5 MG TABLET PO SCH (08:49)
[2016-10-20] MEDS: FLUOXETINE HCL 20 MG CAPSULE PO SCH (08:49)
--- NOTE | 2016-10-20 10:15 | NUR ---
DISCHARGED NOTE Pt is a 26 yr old male, A&Ox3. Pt was admitted on 10/13/16 for ETOH/Benzo Dependence and has completed 5 day Ativan taper as ordered. Medication was cristina well. Pt was cooperative with plan of care and medication regimen. Urine drug screen is complete. Pt was educated on discharge summary. Pt was able to verbalize understanding. Pt was discharged to [facility] on 10/20/16 at 1010 in stable condition. Pt left with all belonging, home medication and valuables.
== END 2016-10-20 10:10 | disposition other institution (70) | DRG 895 ==
LOC: EDBD 19:49 → SRC 19:49
PROVIDERS: ADMIT Internal Medicine; ATTEND Internal Medicine
PROC: HZ2ZZZZ Detoxification Services for Substance Abuse Treatment (ICD-10-PCS; principal; 2016-10-13)
PROC: HZ41ZZZ Group Counseling for Substance Abuse Treatment, Behavioral (ICD-10-PCS; 2016-10-14)
PROC: HZ31ZZZ Individual Counseling for Substance Abuse Treatment, Behavioral (ICD-10-PCS; 2016-10-15)
DX: F10.230 Alcohol dependence with withdrawal, uncomplicated (principal); F31.5 Bipolar disorder, current episode depressed, severe, with psychotic features; F13.930 Sedative, hypnotic or anxiolytic use, unspecified with withdrawal, uncomplicated; Y90.9 Presence of alcohol in blood, level not specified; F41.9 Anxiety disorder, unspecified; Z91.5 Personal history of self-harm; F90.9 Attention-deficit hyperactivity disorder, unspecified type; Z79.899 Other long term (current) drug therapy; G47.00 Insomnia, unspecified; F12.90 Cannabis use, unspecified, uncomplicated
CPT/HCPCS: 36415; 70030-TC; 80307; 80346; 80349; 80361; 83690; 83735; 84443; 85025; 86580; 86592; 86705; 86803; 87340; 87806; G0480; Q0163